=== PATIENT | male | born 1965 | race Caucasian/White ===

== ENCOUNTER 2023-01-07 13:07 | Emergency (ER) | payer OTHER, MEDICAID, SELFPAY ==
[2023-01-07] VITALS (35 sets, daily range): BP systolic 127–197; BP diastolic 69–114; PULSE 78–110; RESP 11–26; TEMP 36.2; O2SAT 91–96; BMI 21.7
--- NOTE | 2023-01-07 13:16 | DI.RAD.S_ITS ---
PROCEDURE: XR CHEST 1V INDICATIONS: chest pain TECHNIQUE: One view of the chest was acquired. COMPARISON: None. FINDINGS: Surgical changes and devices: None. Lungs and pleura: Lungs are clear. No pleural effusions or pneumothorax. Mediastinum: Mediastinal contours appear normal. Heart size is normal. Bones and chest wall: No suspicious bony lesions. Overlying soft tissues appear unremarkable. IMPRESSION: No acute cardiopulmonary process. Dictated by: Abdi Leigh M.D. on 01/07/2023 at 13:38 Approved by: Abdi Leigh M.D. on 01/07/2023 at 13:38
[2023-01-07 13:44] LABS: Add Manual Diff / Slide Review NO; Basophils Absolute Auto 100 /uL (0-100); Basophils Percent Auto 1.3 % (0-2); Eosinophils Absolute Auto 100 /uL (0-450); Eosinophils Percent Auto 0.8 % (2-4); Hematocrit 38.2 % (41-53); Hemoglobin 13.4 g/dL (13.5-17.5); Lymphocytes Absolute Auto 2000 /uL (1100-4500); Lymphocytes Percent Auto 21.6 % (25-40); Mean Corpuscular HGB Conc 35.1 % (30-36); Mean Corpuscular Hemoglobin 29.6 PG (26-34); Mean Corpuscular Volume 84.4 fL (80-100); Monocytes Absolute Auto 500 /uL (0-900); Monocytes Percent Auto 4.9 % (3-14); Neutrophils Absolute Auto 6700 /uL (1500-7000); Neutrophils Percent Auto 71.4 % (50-75); Platelet Count 225 X10^3/uL (150-400); Red Blood Cell Count 4.53 X10^6/uL (4.5-5.9); Red Cell Distribution Width 13.3 % (11.6-14.8); White Blood Cell Count 9.4 X10^3/uL (4.5-11.0)
[2023-01-07 13:51] LABS: Prothrombin Time 11.3 SECONDS (10.1-12.7)
[2023-01-07 13:54] LABS: PTT Partial Thromboplastin Tim 30 SECONDS (26-36)
[2023-01-07 13:56] LABS: Alanine Aminotransferase 46 IU/L (<50); Albumin 4.6 g/dL (3.5-5.0); Albumin Globulin Ratio 1.6 (1.0-2.8); Alkaline Phosphatase 65 U/L (38-126); Aspartate Aminotransferase 25 IU/L (17-59); BUN Creatinine Ratio 20.5 (6-22); Bilirubin Total 0.4 mg/dL (0.2-1.3); Blood Urea Nitrogen 15 mg/dL (9-20); Carbon Dioxide 25 mmol/L (22-32); Chloride 101 mmol/L (98-107); Creatine Kinase 55 U/L (55-170); Estimated Glomerular Filt Rate > 60 mL/min (>60); Globulin 2.8 g/dL (1.7-4.1); Glucose 205 mg/dL (70-100); HEMOLYSIS 16 (0-50); Lipase 73 U/L (23-300); Magnesium 1.9 mg/dL (1.6-2.3); Potassium 3.6 mmol/L (3.4-5.1); Sodium 138 mmol/L (137-145); Total Protein 7.4 g/dL (6.3-8.2)
[2023-01-07 14:07] LABS: Troponin I < 0.012 ng/mL (0.01-0.034)
[2023-01-07] MEDS: ASPIRIN 81 MG CHEW TAB 324 MG PO (14:23)
[2023-01-07] MEDS: NITROGLYCERIN 0.4 MG SL TAB SL ×2 (14:24→14:31)
--- NOTE | 2023-01-07 15:29 | ED_ITS ---
HPI - Chest Pain General Chief Complaint: Chest Pain Stated Complaint: BP high 191 Time Seen by Provider: 01/07/23 13:26 Source: patient Mode of arrival: Ambulatory Limitations: no limitations History of Present Illness HPI narrative: 57-year-old male nonsmoker with history of hypertension and anxiety presents with a chief complaint of left-sided chest pressure and heaviness that started after leaving his primary care office. He states this is quite similar to prior episodes. He denies any exertional component or exercise intolerance. Denies recent trauma, injury or travel. Denies any history of blood clot. He has no headache or blurred vision. He denies runny nose, sore throat or cough. He has no nausea, vomiting or diarrhea. Related Data Allergies Allergy/AdvReac Type Severity Reaction Status Date / Time No Known Drug Allergies Allergy Verified 01/07/23 13:12 Review of Systems Review of Systems Narrative: GENERAL: Denies chills, fatigue, malaise, fever, sweats. HEENT: Denies sinus pain, ear pain, sore throat, difficulty swallowing, dizziness. RESPIRATORY: Denies dyspnea, cough, wheezing, hemoptysis, sputum. CARDIOVASCULAR: See HPI GASTROINTESTINAL: Denies nausea, vomiting, abdominal pain, diarrhea, constipation, melena. : Denies dysuria, frequency, incontinence, hematuria, urinary retention. MUSCULOSKELETAL: denies weakness, joint pain, or bony pain SKIN: Denies rash, skin lesions, or other NEUROLOGIC: Denies weakness, headache, numbness, change in speech, confusion, seizures, incoordination. PSYCHIATRIC: No concerning psychosocial issues. 12 point review of systems is negative except for those stated above Patient History Social History Smoking Status: Unknown if ever smoked Smoking Status: Unknown if ever smoked alcohol intake frequency: holidays/special occasions only Substance Use Type: does not use Exam Narrative Exam Narrative: GENERAL: [57] year old patient appears stated age. Well-developed patient, in mild distress. HEAD: Atraumatic. Normocephalic. EYES: Pupils equal round and reactive. Extraocular motions intact. No scleral icterus. No injection or drainage. ENT: Nose without bleeding, purulent drainage. Throat without erythema, tonsillar hypertrophy or exudate. Airway patent. NECK: Trachea midline. Non tender CARDIOVASCULAR: Regular rate and rhythm without murmurs, gallops, or rubs. RESPIRATORY: Clear to auscultation. Breath sounds equal bilaterally. No wheezes, rales, or rhonchi. GASTROINTESTINAL: Abdomen soft, non-tender, nondistended. EXTREMITIES: No edema or joint tenderness. BACK: Nontender without deformity or crepitance. No flank tenderness. NEURO: AOx3. SKIN: No rash or erythema of visible areas Initial Vital Signs Initial Vital Signs: Vital Signs Temperature 97.1 F L 01/07/23 13:12 Pulse Rate 110 H 01/07/23 13:12 Respiratory Rate 16 01/07/23 13:12 Blood Pressure 197/112 H 01/07/23 13:12 Pulse Oximetry 96 01/07/23 13:12 Oxygen Delivery Method Room Air 01/07/23 13:12 Scores HEART Score Heart Score history: Slightly Suspicious Heart Score EKG: Normal Heart Score Age: 45-64 years old Heart Score risk factors: 1-2 risk factors Heart Score troponin: < or = to normal limit Heart Score Total: 2 Course Orders Ordered: Discontinued Medications Aspirin (Aspirin 81 Mg Chew Tab) 324 mg PO NOW ONE Stop: 01/07/23 13:36 Last Admin: 01/07/23 14:23 Dose: 324 mg Documented By: JAQUI Nitroglycerin (Nitroglycerin 0.4 Mg Sl Tab) 0.4 mg SL [id number] PRN PRN Reason: Chest Pain Last Admin: 01/07/23 14:31 Dose: 0.4 mg Documented By: Admin: 01/07/23 14:24 Dose: 0.4 mg Documented By: JAQUI Vital Signs Vital signs: Vital Signs - 8 hr 01/07/23 13:12 01/07/23 14:24 01/07/23 14:31 Temperature 97.1 F L Pulse Rate 110 H 106 H 95 H Respiratory Rate 16 Blood Pressure 197/112 H 148/78 H 160/93 H Pulse Oximetry 96 Oxygen Delivery Method Room Air 01/07/23 14:13 01/07/23 14:14 01/07/23 14:14 Temperature Pulse Rate 94 H 95 H Respiratory Rate 23 22 Blood Pressure 160/95 H Pulse Oximetry 96 93 Oxygen Delivery Method 01/07/23 14:23 01/07/23 14:23 01/07/23 14:25 Temperature Pulse Rate 96 H Respiratory Rate 14 Blood Pressure 148/78 H 155/82 H Pulse Oximetry 93 Oxygen Delivery Method Room Air 01/07/23 14:25 01/07/23 14:30 01/07/23 14:30 Temperature Pulse Rate 101 H 106 H Respiratory Rate 11 L 17 Blood Pressure 160/93 H Pulse Oximetry 94 93 Oxygen Delivery Method Room Air 01/07/23 14:35 01/07/23 14:35 01/07/23 14:40 Temperature Pulse Rate 102 H Respiratory Rate 22 Blood Pressure 142/69 H 148/74 H Pulse Oximetry 94 Oxygen Delivery Method Room Air 01/07/23 14:40 01/07/23 14:44 01/07/23 14:45 Temperature Pulse Rate 95 H 97 H Respiratory Rate 26 H 18 Blood Pressure 161/94 H Pulse Oximetry 94 94 Oxygen Delivery Method Room Air 01/07/23 14:45 01/07/23 14:50 01/07/23 14:50 Temperature Pulse Rate 99 H 92 H Respiratory Rate 22 20 Blood Pressure 153/77 H Pulse Oximetry 93 93 Oxygen Delivery Method 01/07/23 14:55 01/07/23 14:55 01/07/23 15:00 Temperature Pulse Rate 93 H Respiratory Rate 20 Blood Pressure 140/78 138/79 Pulse Oximetry 94 Oxygen Delivery Method 01/07/23 15:00 01/07/23 15:05 01/07/23 15:05 Temperature Pulse Rate 95 H 90 Respiratory Rate 19 17 Blood Pressure 129/76 Pulse Oximetry 93 94 Oxygen Delivery Method Room Air MDM - Chest Pain Lab Data 01/07/23 13:23 01/07/23 13:23 Labs: Lab Results 01/07/23 01/07/23 01/07/23 Range/Units 13:23 13:23 13:23 WBC 9.4 (4.5-11.0) X10^3/uL RBC 4.53 (4.5-5.9) X10^6/uL Hgb 13.4 L (13.5-17.5) g/dL Hct 38.2 L (41-53) % MCV 84.4 (80-100) fL MCH 29.6 (26-34) PG MCHC 35.1 (30-36) % RDW 13.3 (11.6-14.8) % Plt Count 225 (150-400) X10^3/uL Neut % (Auto) 71.4 (50-75) % Lymph % (Auto) 21.6 L (25-40) % Whitley % (Auto) 4.9 (3-14) % Eos % (Auto) 0.8 L (2-4) % Baso % (Auto) 1.3 (0-2) % Neut # (Auto) 6700 (0841-3821) /uL Lymph # (Auto) 2000 (2310-3743) /uL Whitley # (Auto) 500 (0-900) /uL Eos # (Auto) 100 (0-450) /uL Baso # (Auto) 100 (0-100) /uL PT 11.3 (10.1-12.7) SECONDS INR 1.0 (0.9-1.3) APTT 30 (26-36) SECONDS Sodium 138 (137-145) mmol/L Potassium 3.6 (3.4-5.1) mmol/L Chloride 101 (98-107) mmol/L Carbon Dioxide 25 (22-32) mmol/L BUN 15 (9-20) mg/dL Creatinine 0.73 (0.66-1.25) mg/dL Estimated GFR > 60 (>60) mL/min BUN/Creatinine Ratio 20.5 (6-22) Glucose 205 H (70-100) mg/dL Calcium 9.0 (8.4-10.2) mg/dL Magnesium 1.9 (1.6-2.3) mg/dL Total Bilirubin 0.4 (0.2-1.3) mg/dL AST 25 (17-59) IU/L ALT 46 (<50) IU/L Alkaline Phosphatase 65 (38-126) U/L Total Creatine Kinase 55 (55-170) U/L CK-MB (CK-2) TNP CK-MB (CK-2) Rel Index TNP Troponin I < 0.012 (0.01-0.034) ng/mL Total Protein 7.4 (6.3-8.2) g/dL Albumin 4.6 (3.5-5.0) g/dL Globulin 2.8 (1.7-4.1) g/dL Albumin/Globulin Ratio 1.6 (1.0-2.8) Lipase 73 (23-300) U/L 01/07/23 Range/Units 16:20 WBC (4.5-11.0) X10^3/uL RBC (4.5-5.9) X10^6/uL Hgb (13.5-17.5) g/dL Hct (41-53) % MCV (80-100) fL MCH (26-34) PG MCHC (30-36) % RDW (11.6-14.8) % Plt Count (150-400) X10^3/uL Neut % (Auto) (50-75) % Lymph % (Auto) (25-40) % Whitley % (Auto) (3-14) % Eos % (Auto) (2-4) % Baso % (Auto) (0-2) % Neut # (Auto) (0591-0401) /uL Lymph # (Auto) (9339-7945) /uL Whitley # (Auto) (0-900) /uL Eos # (Auto) (0-450) /uL Baso # (Auto) (0-100) /uL PT (10.1-12.7) SECONDS INR (0.9-1.3) APTT (26-36) SECONDS Sodium (137-145) mmol/L Potassium (3.4-5.1) mmol/L Chloride (98-107) mmol/L Carbon Dioxide (22-32) mmol/L BUN (9-20) mg/dL Creatinine (0.66-1.25) mg/dL Estimated GFR (>60) mL/min BUN/Creatinine Ratio (6-22) Glucose (70-100) mg/dL Calcium (8.4-10.2) mg/dL Magnesium (1.6-2.3) mg/dL Total Bilirubin (0.2-1.3) mg/dL AST (17-59) IU/L ALT (<50) IU/L Alkaline Phosphatase (38-126) U/L Total Creatine Kinase 56 (55-170) U/L CK-MB (CK-2) TNP CK-MB (CK-2) Rel Index TNP Troponin I < 0.012 (0.01-0.034) ng/mL Total Protein (6.3-8.2) g/dL Albumin (3.5-5.0) g/dL Globulin (1.7-4.1) g/dL Albumin/Globulin Ratio (1.0-2.8) Lipase (23-300) U/L MDM Narrative Medical decision making narrative: [57] year old patient presents with chest pain and high blood pressure Multiple etiologies for patient's symptoms considered including, but not limited to: [Hypertension versus cardiac ischemia versus anxiety versus other] Prior Charts reviewed in our EMR Primary Historian: patient Labs reviewed and interpreted by myself: No specific abnormalities requiring specific intervention Imaging reviewed: No acute process Patient's symptoms improved over duration of stay with above-stated therapies. Findings and discharge diagnosis discussed with patient/family followed by verbalization of understanding Return precautions discussed with patient/family whom verbalize understanding of diagnosis and plan Discharge Plan Departure Patient Disposition: Home Clinical Impression: Atypical chest pain Instructions: DI for Atypical Chest Pain Referrals: Master Rodriguez MD [Primary Care Provider] - Stand Alone Forms: Patient Portal/API
[2023-01-07 16:36] LABS: Creatine Kinase 56 U/L (55-170)
[2023-01-07 16:49] LABS: Troponin I < 0.012 ng/mL (0.01-0.034)
== END 2023-01-07 17:20 | disposition home or self-care (01) ==
PROVIDERS: Emergency Provider Emergency Medicine; PCP Family Medicine
DX: R07.89 Other chest pain (principal); I10 Essential (primary) hypertension
CPT/HCPCS: 36415; 71045; 80053; 82550; 83690; 83735; 84484; 85025; 85610; 85730; 93005; 93010; 99284

== ENCOUNTER → 2023-09-16 18:52 | Outpatient (CLI) | payer OTHER, MEDICAID, SELFPAY ==
--- NOTE | 2023-09-16 | DI.MRI.S_ITS ---
PROCEDURE: MR LUMBAR SPINE WO CON INDICATIONS: Radiculopathy, Lumbar region TECHNIQUE: Noncontrast sagittal T1 spin echo and T2 fast echo, sagittal STIR, and T2 fast spin echo through the lumbar spine. In cases with scoliosis, additional coronal T2 fast spin echo may be performed. COMPARISON: None. FINDINGS: Image quality: Excellent. Alignment and Curvature: There is trace retrolisthesis of L4 on L5, L5 on S1. Bone Marrow: Marrow is of normal overall signal. No acute vertebral body compression fractures. Spinal Cord: Conus medullaris terminates at the L1 level. Visualized cord demonstrates normal signal and size. Paraspinous Soft Tissues: No paravertebral masses. Discs: Multilevel disc desiccation is present most severe at L5-S1. T12-L1: No disc bulge, spinal stenosis or foraminal narrowing. L1-L2: Minimal disc bulge without spinal stenosis or foraminal narrowing. L2-L3: Minimal disc bulge without spinal stenosis or foraminal narrowing. L3-L4: Minimal disc bulges without spinal stenosis or foraminal narrowing. Mild epidural lipomatosis as well as facet and ligamentum flavum hypertrophy L4-L5: Mild disc bulge including a left lateral component. Minimal canal narrowing. Is mild left foraminal narrowing. Facet and ligamentum flavum hypertrophy is present L5-S1: Mild disc bulge with minimal canal narrowing. Mild bilateral foraminal narrowing, left greater than right. IMPRESSION: Early degenerative changes including disc bulges, canal narrowing and minimal to mild foraminal narrowing. It is most notable at L5-S1. Dictated by: Armida Ortiz M.D. on 09/19/2023 at 8:54 Approved by: Armida Ortiz M.D. on 09/19/2023 at 9:02
== END ==
LOC: MRI 18:54
PROVIDERS: PCP Family Medicine; Referring Provider Physical Medicine & Rehabilitation Pain Medicine; Visit Provider Physical Medicine & Rehabilitation Pain Medicine
DX: M51.16 Intervertebral disc disorders with radiculopathy, lumbar region (principal); M51.17 Intervertebral disc disorders with radiculopathy, lumbosacral region; M48.061 Spinal stenosis, lumbar region without neurogenic claudication; M48.07 Spinal stenosis, lumbosacral region; M47.26 Other spondylosis with radiculopathy, lumbar region
CPT/HCPCS: 72148

== ENCOUNTER 2024-01-30 13:35 | Emergency (ER) | payer OTHER, MEDICAID, SELFPAY ==
[2024-01-30 13:39] VITALS: BP 143/97; PULSE 90; RESP 18; TEMP 36.6; O2SAT 96; BMI 32.5
--- NOTE | 2024-01-30 13:47 | DI.RAD.S_ITS ---
PROCEDURE: XR SHOULDER LT MIN 2V INDICATIONS: concerned for dislocation TECHNIQUE: 3 views of the shoulder were acquired. COMPARISON: None. FINDINGS: Bones: No fractures or dislocations. No suspicious bony lesions. Visualized ribs appear intact. Mild arthritic changes at the shoulder joint. Soft tissues: No suspicious soft tissue calcifications. IMPRESSION: Mild arthritic changes without dislocation. Dictated by: Armida Ortiz M.D. on 01/30/2024 at 16:04 Approved by: Armida Ortiz M.D. on 01/30/2024 at 16:04
[2024-01-30 16:33] VITALS: BP 124/87; PULSE 85; RESP 16; O2SAT 96
--- NOTE | 2024-01-30 16:39 | ED.LOWEXIN ---
HPI - Extremity Injury (Lower) <Alyse Sarmiento PA-C - Last Filed: 01/30/24 17:40> General Chief Complaint: Extremity Injury, Lower Stated Complaint: per pt dislocated L shoulder/pain Time Seen by Provider: 01/30/24 14:22 Source: patient Mode of arrival: Ambulatory History of Present Illness HPI Narrative: 58-year-old male with chronic back and shoulder pain presents to the ED with an acute on chronic exacerbation of left shoulder pain. Patient states that 2 days ago he had to hold his left arm up in order to complete a cardio stress test, following which his left shoulder pain has worsened. Patient has chronic back issues as well and takes hydrocodone and lorazepam for pain relief. Patient states that he not getting sufficient relief despite the pain medications. Patient states that he has had several such acute flares of shoulder feels like his shoulder has dislocated. Unclear if patient has a history of shoulder dislocation versus pain that feels to him like his shoulder has dislocated. Patient is also endorsing some intermittent numbness, tingling which he says happens every time he has a flare-up. Related Data Previous Rx's Medication Instructions Recorded cyclobenzaprine 10 mg tablet 10 mg PO TID PRN muscle spasm 5 01/30/24 days #15 tabs lidocaine 5 % topical patch 1 patch topical DAILY #30 ea 01/30/24 Allergies Allergy/AdvReac Type Severity Reaction Status Date / Time No Known Drug Allergies Allergy Verified 01/07/23 13:12 Review of Systems <Alyse Sarmiento PA-C - Last Filed: 01/30/24 17:40> Constitutional Constitutional: Denies chills, Denies fatigue, Denies fever(s), Denies frequent falls, Denies lethargy and Denies weakness Eyes Eyes: Denies change in vision, Denies eye discharge, Denies irritation and Denies loss of vision ENT Ears, Nose, Mouth, and Throat: Denies change in voice, Denies dizziness, Denies neck pain, Denies sore throat and Denies throat swelling Cardiovascular Cardiovascular: Denies chest pain, Denies irregular heart rhythm, Denies lightheadedness, Denies palpitations, Denies dyspnea, Denies dyspnea on exertion and Denies orthopnea Respiratory Respiratory: Denies cough, Denies dyspnea, Denies dyspnea on exertion and Denies wheezing Gastrointestinal Gastrointestinal: Denies abdominal pain, Denies change in bowel habits, Denies diarrhea, Denies nausea and Denies vomiting Musculoskeletal Musculoskeletal: Denies neck pain and Denies numbness Comments: Left shoulder pain Integumentary/Breasts Skin/Breast: Denies pruritus, Denies erythema, Denies rash and Denies wounds Neurologic Neurologic: Denies behavioral changes, Denies confusion, Denies dizziness, Denies frequent falls, Denies loss of vision, Denies numbness and Denies weakness Psychiatric Psychiatric: Denies anxiety, Denies behavioral changes, Denies confusion, Denies depression, Denies homicidal ideation and Denies suicidal ideation Endocrine Endocrine: Denies fatigue, Denies flushing and Denies palpitations Hematologic/Lymphatic Hematologic/Lymphatic: Denies easy bruising Allergic/Immunologic Allergic/Immunologic: Denies urticaria, Denies throat swelling and Denies wheezing Patient History <Alyse Sarmiento PA-C - Last Filed: 01/30/24 17:40> Social History Smoking Status: Unknown if ever smoked Smoking Status: Unknown if ever smoked alcohol intake frequency: holidays/special occasions only Substance Use Type: marijuana Exam <Alyse Sarmiento PA-C - Last Filed: 01/30/24 17:40> Narrative Exam Narrative: Const General:?cooperative, healthy appearing and comfortable [facility] Head:?normal to inspection Ears:?hearing grossly normal bilaterally Nose:?external nose normal Face and sinus:?normal facial exam and sinuses nontender Mouth:?oral mucosae normal Throat:?posterior oropharynx normal Eyes General:?appearance normal, both eyes and all related structures Neck Neck:?normal visual inspection and no lymphadenopathy noted Resp Effort & Inspection:?normal respiratory effort Auscultation:?clear to auscultation bilaterally Cardio Rate:?regular rate Rhythm:?regular rhythm Musculoskeletal There is some tenderness to palpation of the left shoulder. No bruising, deformities. There is good range of motion, though limited by pain. Neurovascularly intact. Neuro General:?patient alert, patient awake and patient oriented x3 Initial Vital Signs Initial Vital Signs: Vital Signs Temperature 97.9 F 01/30/24 13:39 Pulse Rate 90 01/30/24 13:39 Respiratory Rate 18 01/30/24 13:39 Blood Pressure 143/97 H 01/30/24 13:39 Pulse Oximetry 96 01/30/24 13:39 Oxygen Delivery Method Room Air 01/30/24 13:39 <Vera Abel MD - Last Filed: 01/31/24 07:15> Initial Vital Signs Initial Vital Signs: Vital Signs Temperature 97.9 F 01/30/24 13:39 Pulse Rate 90 01/30/24 13:39 Respiratory Rate 18 01/30/24 13:39 Blood Pressure 143/97 H 01/30/24 13:39 Pulse Oximetry 96 01/30/24 13:39 Oxygen Delivery Method Room Air 01/30/24 13:39 Course <Alyse Sarmiento PA-C - Last Filed: 01/30/24 17:40> Orders Ordered: ED Orders 01/30/24 13:47 XR shoulder LT min 2V Stat Vital Signs Vital signs: Vital Signs - 8 hr 01/30/24 13:39 01/30/24 16:33 Temperature 97.9 F Pulse Rate 90 85 Respiratory Rate 18 16 Blood Pressure 143/97 H 124/87 Pulse Oximetry 96 96 Oxygen Delivery Method Room Air Room Air <Vera Abel MD - Last Filed: 01/31/24 07:15> Orders Ordered: ED Orders 01/30/24 13:47 XR shoulder LT min 2V Stat Vital Signs Vital signs: Vital Signs - 8 hr 01/30/24 13:39 01/30/24 16:33 Temperature 97.9 F Pulse Rate 90 85 Respiratory Rate 18 16 Blood Pressure 143/97 H 124/87 Pulse Oximetry 96 96 Oxygen Delivery Method Room Air Room Air MDM - Extremity Injury (Lower) <Alyse Sarmiento PA-C - Last Filed: 01/30/24 17:40> MDM Narrative Medical decision making narrative: 58-year-old male with chronic back and shoulder pain presents to the ED with an acute on chronic exacerbation of left shoulder pain. X-ray shows mild arthritic changes without fractures or dislocations. Patient is able to move his arm, although range of motion is limited somewhat by pain. Patient was fitted in a sling to relieve some of the pressure from the shoulder. Prescribed lidocaine patches, muscle relaxant. Patient agrees to follow-up with his PCP and ortho specialist. ED return precautions were discussed with patient. Patient verbalized understanding. Medical records reviewed: Yes Discharge Plan Departure Patient Disposition: Home Clinical Impression: Left shoulder pain Qualifiers: Chronicity: unspecified Qualified Code(s): M25.512 - Pain in left shoulder Instructions: DI for Shoulder Sprain Activity Restrictions/Additional Instructions: You were evaluated in the ED today for left-sided shoulder pain. The x-ray does not show any fractures or dislocations. It appears that you have an exacerbation of your shoulder pain. Your arm was fitted in a sling. You may continue to use the sling for the next few days as your shoulder heals. You may take your existing pain medications as prescribed. You are also being prescribed lidocaine patches and a muscle relaxant. Please follow-up with your PCP and ortho specialist as soon as possible. Return to the ED if you have worsening symptoms. Prescriptions: New lidocaine 5 % adhesive patch,medicated 1 patch topical DAILY Qty: 30 0RF Rx Instructions: leave on most painful area for up to 12 hrs cyclobenzaprine 10 mg tablet 10 mg PO TID PRN (Reason: muscle spasm) 5 Days Qty: 15 0RF Referrals: Master Rodriguez MD [Primary Care Provider] - Stand Alone Forms: Patient Portal/API ED Sign-out <Vera Abel MD - Last Filed: 01/31/24 07:15> Cosign ED Attending Cosignature Attestation: I was immediately available in the department for consultation throughout this patient's visit. Vera Abel MD
== END 2024-01-30 16:35 | disposition home or self-care (01) ==
PROVIDERS: Emergency Provider Student in an Organized Health Care Education/Training Program; PCP Family Medicine
DX: M25.512 Pain in left shoulder (principal)
CPT/HCPCS: 73030; 99283

== ENCOUNTER → 2024-02-29 18:12 | Outpatient (CLI) | payer OTHER, MEDICAID, SELFPAY ==
--- NOTE | 2024-02-29 18:13 | DI.MRI.S_ITS ---
PROCEDURE: MR SHOULDER LT WO CON INDICATIONS: INJURY OF ROTATOR CUFF LT SHOULDER,PAIN TECHNIQUE: Noncontrast oblique coronal T2 fast spin echo with fat saturation, oblique sagittal T1 spin echo and T2 fast spin echo with fat saturation, axial T1 spin echo and T2 fast spin echo with fat saturation through the shoulder. COMPARISON: [facility], CR, XR SHOULDER LT MIN 2V, 01/30/2024, 14:06. FINDINGS: Image quality: Markedly limited. Only axial T2 and T1 sequences were obtained. Patient unable to tolerate further imaging. Significant patient motion is also noted. Rotator cuff: Limited evaluation shows no definite full-thickness rotator cuff tendon rupture. No significant rotator cuff muscle atrophy is seen on the images given. Bones and bursae: Onvy-[id number]-[id number] acromioclavicular joint osteoarthritic changes are seen with joint space narrowing and subchondral sclerosis. Alji-gg-[id number] glenohumeral joint osteoarthritic changes are seen. No gross marrow edema. No acute fracture or dislocation. Small amount of joint effusion and subacromial subdeltoid bursal fluid is seen, no loose bodies. Capsule and soft tissues: Finding is concerning for superior anterior labral tear with fraying of glenoid labrum and T2 hyperintense signal. The included portion of long head of biceps tendon show no gross abnormality. IMPRESSION: 1. Markedly limited study due to limited sequences obtained. 2. No definite full-thickness rotator cuff tendon rupture. No significant rotator cuff muscle atrophy. 3. Mild to moderate acromioclavicular joint and glenohumeral joint osteoarthritis. No acute fracture or dislocation. Small amount of joint effusion and subacromial subdeltoid bursal fluid, no gross loose bodies. 4. Finding is concerning for fairly extensive superior anterior left glenoid labral tear. Dictated by: Lito Abbasi M.D. on 03/01/2024 at 12:11 Approved by: Lito Abbasi M.D. on 03/01/2024 at 12:14
== END ==
PROVIDERS: PCP Family Medicine; Referring Provider Physician Assistant; Visit Provider Physician Assistant
DX: S46.002A Unspecified injury of muscle(s) and tendon(s) of the rotator cuff of left shoulder, initial encounter (principal); M25.512 Pain in left shoulder; M25.412 Effusion, left shoulder; M19.012 Primary osteoarthritis, left shoulder; X58.XXXA Exposure to other specified factors, initial encounter
CPT/HCPCS: 73221

== ENCOUNTER → 2025-05-17 11:06 | Outpatient (CLI) | payer OTHER, SELFPAY ==
[2025-03-15 13:42] VITALS: BMI 33.2
--- NOTE | 2025-05-17 11:10 | DI.RAD.S_ITS ---
PROCEDURE: FL ARTHROGRAM SHOULDER LT INDICATIONS: CHRONIC SHOULDER PAIN COMPARISON: [facility], CR, XR SHOULDER 2+ VIEWS LEFT, 01/30/2025, 13:41. TECHNIQUE: The indications, alternatives, benefits, risks, and complications of the procedure were explained to the patient. Written informed consent was obtained and placed in the chart. The shoulder was examined fluoroscopically and a site for needle placement chosen for entry into the glenohumeral joint from an anterior approach. The skin was prepped and draped in a sterile fashion, and 1% lidocaine infiltrated from skin down to joint capsule. A spinal needle was inserted into the glenohumeral joint, and a small amount of iodinated contrast media injected to confirm intra-articular placement of the needle tip. This was followed by approximately 12 mL dilute solution of a gadolinium containing MR contrast agent. The needle was removed and a dressing was applied. The patient was given postprocedural instructions and sent to the MR suite for MR imaging. FINDINGS: A single fluoroscopic spot image demonstrates intra-articular location of injected iodinated contrast. IMPRESSION: Successful fluoroscopically guided administration of dilute Gadolinium solution into the left shoulder joint for MR arthrogram. Dictated by: Cheri FAN Interpreted: Manny Blackwell MD on 05/17/2025 at 14:49 Transcribed by: CARLA on 05/17/2025 at 14:49 Approved by: Manny Blackwell M.D. on 05/17/2025 at 16:36
--- NOTE | 2025-05-17 11:10 | DI.MRI.S_ITS ---
PROCEDURE: MR SHOULDER LT W CON INDICATIONS: CHRONIC SHOULDER PAIN TECHNIQUE: After the administration of 12 mL of dilute intra-articular Gadolinium contrast, oblique coronal T1 and T2 spin echo with fat saturation, oblique sagittal T1 spin echo with and without fat saturation, oblique sagittal T2 fast spin echo with fat saturation, axial T1 spin echo with fat saturation through the shoulder. COMPARISON: None. FINDINGS: Quality: Adequate. Tendons: Rotator cuff tendons: Tendon anchor from prior supraspinatus repair. Near full-thickness bursal sided insertional tear of supraspinatus tendon. No leakage of contrast from the joint. Infraspinatus and teres minor tendons are intact. Subscapularis tendon is intact. Long head of biceps tendon: Prior tenodesis. Muscles: No disproportionate fatty degeneration of the rotator cuff musculature. Acromioclavicular joint: Distal clavicular resection and acromioplasty. Fluid at the acromioclavicular joint. Glenohumeral joint: Labrum: Unremarkable. Cartilage: No focal defect. Fluid: Adequate distention of joint by intra-articular injection of gadolinium contrast containing fluid. Alignment: No dislocation. Bursa: Subacromial/subdeltoid bursa: Distended Subcoracoid bursa: Nondistended. Bones: No fracture. IMPRESSION: Near full-thickness near full width bursal sided supraspinatus tendon tear. Subacromial/subdeltoid bursitis. Dictated by: Remington Petit M.D. on 05/17/2025 at 14:45 Approved by: Remington Petit M.D. on 05/17/2025 at 14:50
[2025-05-17] MEDS: SODIUM CHLORIDE 0.9 % 20 ML VIAL IV (11:57)
[2025-05-17] MEDS: LIDOCAINE 1% 20 ML INJ (11:57)
== END ==
LOC: RAD 11:08
PROVIDERS: PCP Family Medicine; Referring Provider Family Medicine; Visit Provider Orthopaedic Surgery
DX: S43.432D Superior glenoid labrum lesion of left shoulder, subsequent encounter (principal); M75.112 Incomplete rotator cuff tear or rupture of left shoulder, not specified as traumatic; M75.52 Bursitis of left shoulder; X58.XXXD Exposure to other specified factors, subsequent encounter
CPT/HCPCS: 23350; 73040; 73222; A9579; Q9967